=== PATIENT | male | born 1950 | race Native Hawaiian/Other Pacific Islander ===

== ENCOUNTER 2019-11-22 15:25 | Emergency (ER) | payer OTHER ==
[~2019-11-22] VITALS: Ht 170.2 cm; Wt 72.6 kg
[2019-11-22 15:25] VITALS: BP 107/83; TEMP 98.9
[~2019-11-22 15:25] MED LIST: ARIPIPRAZOLE2 MG PO; ARIPIPRAZOLE20 MG PO; B12-ACTIVE1 MG PO; BENZ1TAB43 PO; BENZTROPINE2 MG PO; DIPH50CA30 PO; FERROUS SULF325 M1 PO; LEXAPRO20 MG PO; LISI5TAB10 PO; METOPROLOL SUCC PO; MIRTAZAPINE7.5 MG PO; NEXIUM40 M1 PO; ONDA4TAB3 PO; RISP2TAB2 PO; RISPERDAL3 MG PO; SENNA-S1 TAB PO; SIMV10TA PO; SINGULAIR10 MG PO; TEMA15CA19 PO; TRAM50TA PO; TRAZ100T PO; VENLAFAXINE PO; VENLAFAXINE225 MG PO; VITAMIN D31000 UNIT PO; ZYPREXA ZYDI10 MG PO
[2019-11-22 16:06] LABS: POTASSIUM 3.8 mmol/L (3.6-5.2)
[2019-11-22 16:13] LABS: PLATELET COUNT 322 K/uL (142-355)
[2019-11-22] MEDS ORDERED: TYLENOL325 MG PO (17:28)
[2019-11-22] MEDS ORDERED: CLON0.5T36 PO (17:36)
[2019-11-22] MEDS ORDERED: BENZTROPINE2 MG PO (17:36)
[2019-11-22] MEDS ORDERED: FLONASE AL50 MCG/ACT NAS (17:37)
[2019-11-22] MEDS ORDERED: FLUOXETINE10 MG PO (17:38)
[2019-11-22] MEDS ORDERED: HALO50IN4 IM (17:40)
[2019-11-22] MEDS ORDERED: OMEP40CA PO (17:41)
[2019-11-22] MEDS ORDERED: MIRALAX3350 N1 PO (17:42)
[2019-11-22] MEDS ORDERED: PROPRANOLOL20 MG PO (17:43)
[2019-11-22] MEDS ORDERED: SEROQUEL50 MG PO (17:45)
[2019-11-22] MEDS ORDERED: MULTIVITAMI1 PO (17:46)
[2019-11-22] MEDS ORDERED: TRAM50TA PO (17:47)
[2019-11-22] MEDS ORDERED: VITAMIN C 500 M1 TAB PO (17:48)
== END 2019-11-22 17:20 | disposition other institution (70) ==
LOC: ED 15:37
PROVIDERS: Emergency Medicine
DX: F28 Other psychotic disorder not due to a substance or known physiological condition (principal); Z11.59 Encounter for screening for other viral diseases; Z04.6 Encounter for general psychiatric examination, requested by authority
CPT/HCPCS: 80053; 85027; 87635; 93005; 99283; 99285; U0003